=== PATIENT | female | born 1960 | race Two or more races ===

== ENCOUNTER 2024-07-19 17:03 | Emergency (ER) | payer MEDICAID, SELFPAY ==
[2024-07-19 17:06] VITALS: BP 120/62; PULSE 77; RESP 19; TEMP 36.6; O2SAT 96
[2024-07-19 17:18] VITALS: PULSE 79; RESP 18; O2SAT 100; BMI 26.5
[2024-07-19 17:25] VITALS: BP 123/57; PULSE 76; RESP 13; TEMP 36.5; O2SAT 97
--- NOTE | 2024-07-19 17:30 | PC.NURSE ---
Patient denies n/vomiting, patient states she did not eat all day, patient provided with 120ml of orange juice and a turkey sandwich.
--- NOTE | 2024-07-19 17:51 | EDNOTE_ITS ---
Altered Mental Status RME/HPI General Chief Complaint: Altered Mental Status Stated Complaint: ALTERED MENTAL STATUS Time Seen by Provider: 07/19/24 17:44 Arrival date/time: 07/19/24 17:03 Limitations: no limitations RME / HPI RME / HPI narrative: 63-year-old patient was at the [facility] when she had a sudden drop in her glucose became altered and brought in by EMS. States she had not eaten all day and decided to take her glipizide 5 mg. Prescribed 5 mg of glipizide twice daily. States that she has had hypoglycemia in the past with insulin and with GLP once a week injection. States they stopped her metformin a long time ago due to CKD. Has been sent to nephrology but refuses to go. States she feels fine. Reports he is always afraid to use diabetic medicine because she has a sugar drop and feels horrible as opposed to when her sugar is high or normal she feels fine. No chest pain or shortness of breath. Related Data Allergies Allergy/AdvReac Type Severity Reaction Status Date / Time No Known Allergies Allergy Verified 07/19/24 17:24 Review of Systems Review of Systems Systems Reviewed: All systems reviewed, normal except as documented Cardiovascular Cardiovascular: Denies chest pain at rest Respiratory Respiratory: Denies chest congestion Gastrointestinal Gastrointestinal: Denies abdominal pain Endocrine Endocrine: Reports as per HPI ED Exam General Limitations: Present no limitations General appearance: Present alert and in no apparent distress Head Head exam: Present atraumatic Eye Eye exam: Present normal appearance, PERRL and EOMI ENT ENT exam: Present normal exam, normal oropharynx and mucous membranes moist Neck Neck exam: Present normal inspection, full ROM and trachea midline Chest Chest inspection: Present normal inspection and symmetric chest wall rise Respiratory Respiratory exam: Present normal lung sounds bilaterally Cardiovascular Cardiovascular exam: Present regular rate, normal rhythm and normal heart sounds Abdominal Exam Abdominal exam: Present soft and normal bowel sounds Extremities Exam Extremities exam: Present normal inspection and full ROM Back Exam Back exam: Present normal inspection and full ROM Psychiatric Psychiatric exam: Present normal affect and normal mood Skin Skin exam: Present warm, dry, intact and normal color Course Quality Measures none Orders Category Date Time Status EKG (ED ONLY) *Do not use* NOW Care 07/19/24 17:52 Completed EKG (ED Only) Stat Exams 07/19/24 17:52 Draft XR chest 1V Stat Exams 07/19/24 17:52 Completed BNP [B-Type Natriuretic Peptide] Stat Lab 07/19/24 17:36 Completed CBC Stat Lab 07/19/24 17:36 Completed CMP [Comprehensive Metabolic Panel] Stat Lab 07/19/24 17:36 Completed Ketone [Beta Hydroxybutyrate] Stat Lab 07/19/24 17:36 Completed Lactic Acid [Lactate (Lactic Acid)] Stat Lab 07/19/24 17:36 Completed Lipase Stat Lab 07/19/24 17:36 Completed Troponin I Stat Lab 07/19/24 17:36 Completed UA [Urinalysis] Stat Lab 07/19/24 19:45 Completed VBG [Venous Blood Gas] Stat Lab 07/19/24 17:36 Completed Vital Signs Vital signs: Vital Signs Temperature 97.9 F 07/19/24 17:06 Pulse Rate 77 07/19/24 17:06 Respiratory Rate 19 07/19/24 17:06 Blood Pressure 120/62 07/19/24 17:06 Pulse Oximetry (%) 96 07/19/24 17:06 Oxygen Delivery Method Room Air 07/19/24 17:06 Procedures -ED EKG Interpretation #1: Date of EK07/19/24 Time of EK:59 Rate: 76 Interpretation: Interpreted by me EKG Impression: Normal sinus rhythm, No acute ST-T changes and No ectopy Altered Mental Status MDM Narrative MDM Narrative:: 63-year-old female with poor compliance medication and known CKD responded well to oral glucose. Advised to not take glipizide for the next few days until she can follow-up with PCP. Return to ER if symptoms worsen Patient data External records reviewed:: [facility] previous records Clinical information provided by:: patient and EMS Social determinants that could affect healthcare access:: other (specify) (Elderly patient brought in by EMS for acute condition) Patient has the following chronic illnesses:: Diabetes with history of hypoglycemia Chronic kidney disease How is presenting disease/condition affected by chronic disease/condition?: exacerbated by Evaluation data The following diagnostics were reviewed and interpreted by me:: lab results and radiology exam(s) Lab and/or radiology exams considered but not ordered:: CT abdomen pelvis considered however not warranted and this episode of hypoglycemia which was resolved Interpretation Summary: CBC within normal limits, CMP shows a creatinine of 2.7 patient states she has CKD and this is not new for her. No lactic acidosis normal EKG normal troponin normal BNP no pneumonia found on chest x-ray Medications / Prescriptions Medications or Prescriptions considered but not ordered:: Glucose was considered however patient responded to food Medication administrations:: None Consultations Consultation(s) initiated? (list below): No Diagnosis Most likely diagnosis given after review of the tests above:: Hypoglycemia due to glipizide without eating Diabetes with CKD Admission Indicated Admission indicated?: not indicated Admission Request Was there a request for admission?: No Disposition Plan Disposition Plan: Discharge Discharge Attestation Discharge Attestation: The patient and all family members were given an opportunity to ask questions and understood the discharge instructions. Discharge instructions specifically effects, indications for sooner follow up or return to the emergency department, and the expected course of current diagnosis. Patient condition: Stable Discharge Plan Plan Patient Disposition: HOME (Self Care) Discharge Disposition comment: Follow-up with PCP in 2 to 3 days Prescriptions/Referrals Referrals: No Primary/Family,Physician [Primary Care Provider] - In 1 week Problem List Clinical Impression: Diabetes mellitus with hypoglycemia, CKD (chronic kidney disease), Poor compliance with medication Patient/Caregiver Discharge Instructions Education Materials: CKD Dc, Diabetes Exercise Plan Print Language: Cymro Stand Alone Forms: Mis Award Info., Patient Portal Info Letter PA/SPICE MILLER Supervising Physician PA/SPICE MILLER Supervising Physician: Dr. Jernigan
--- NOTE | 2024-07-19 17:52 | EKG_ITS ---
[facility] Test Date: 2024-07-19 Pat Name: ESTHER CARLSON Department: Room: - Gender: Female Acute Specialist: : 1960 Requested By: Rosemary Singletary Order Number: [id number] Reading MD: Rosemary Singletary Measurements Intervals [place] Rate: 76 P: -1 RI: 176 QRS: -14 QRSD: 137 T: -2 QT: 432 QTc: 486 Interpretive Statements SINUS RHYTHM RIGHT BUNDLE BRANCH BLOCK [120+ ms QRS DURATION, UPRIGHT V1, 40+ ms S IN I/aVL/V4/V5/V6] No previous ECG available for comparison /[id number]/[email or web address]/[id number].pdf
--- NOTE | 2024-07-19 17:52 | XR_ITS ---
Examination: AP chest single view Technique one AP portable semiupright chest single view Date and time: July 19, 2024 1828 hours INDICATIONS: Chest pain shows about beginning today FINDINGS: Mild heart failure Mild enlargement cardiac contour. Prominent vascular congestion and increased central vascular engorgement Early perihilar edema Prominent osteopenia IMPRESSION: Early heart failure
[2024-07-19 18:07] LABS: Base Excess, Venous -14 (-3-3); Lactate (Lactic Acid) 1.2 mMol/L (0.4-2.0); O2 Saturation, Venous 94 % (96-97); PCO2, Venous 35 mmHg (36-56); PO2, Venous 100 mmHg (15-58); pH, Venous 7.19 (7.33-7.66)
--- NOTE | 2024-07-19 18:10 | PC.NURSE ---
Patient FSBS 93mg/dl, Dr. Jacobo made aware and wants patient to be given more food, patient provided with chips, 120ml of orange juice and jello.
[2024-07-19 18:19] LABS: Basophils % (Auto) 0 % (0-2.5); Eosinophils % (Auto) 1 % (0-10); Hematocrit 24.3 % (36.0-46.0); Immature Granulocytes % (Auto) 0 % (0-0); Immature Granulocytes Auto 0.02 Thou/mm3 (0.00-0.00); Lymphocytes # (Auto) 0.6 Thou/mm3 (1.0-4.8); Lymphocytes % (Auto) 10 % (10-50); Mean Corpuscular HGB Conc 33.3 g/dl (31.0-37.0); Mean Corpuscular Hemoglobin 29.6 pg (25.0-35.0); Mean Corpuscular Volume 89 fL (80-100); Monocytes # (Auto) 0.6 Thou/mm3 (0.0-0.8); Monocytes % (Auto) 10 % (0-12); Neutrophils # (Auto) 5.2 Thou/mm3 (1.8-7.7); Neutrophils % (Auto) 80 % (37-80); Nucleated Red Blood Cell % 0 /100 WBC (0); Platelet Count 109 Thou/mm3 (140-440); RDW Standard Deviation 46.9 fL (36.4-46.3); Red Blood Count 2.74 Miln/mm3 (4.00-5.20); White Blood Count 6.6 Thou/mm3 (3.6-11.0)
[2024-07-19 18:35] LABS: Hemoglobin 8.1 g/dL (12.0-16.0)
[2024-07-19 18:58] LABS: B-Type Natriuretic Peptide 202 pg/mL (0-100)
[2024-07-19 19:08] LABS: Alanine Aminotransferase 13 U/L (10-49); Albumin, Serum 3.4 gm/dL (3.4-4.8); Albumin/Globulin Ratio 1.7 (1.2-2.2); Alkaline Phosphatase 127 U/L (46-116); BUN/Creatinine Ratio 21 Ratio (12-20); Bilirubin,Total < 0.2 mg/dL (0.3-1.2); Blood Urea Nitrogen 56 mg/dL (9-23); Calcium 7.7 mg/dL (8.3-10.6); Calcium (Corrected) 8.2 mg/dL (8.5-10.1); Chloride 112 mMol/L (98-107); Creatinine (Component) 2.7 mg/dL (0.6-1.3); Estimated Creatinine Clearance 18.5 mL/min (>60); Glucose 204 mg/dL (74-106); Lipase 16 U/L (12-53); Osmolality,Calculated 302 (275-295); Sodium 141 mMol/L (136-145); Total Protein 5.4 gm/dL (5.7-8.2); Troponin I < 0.020 ng/mL (0.0-0.045); eGFR 19 See Note
[2024-07-19 19:17] VITALS: BP 128/54; PULSE 84; RESP 20; TEMP 36.5; O2SAT 100
[2024-07-19 19:18] LABS: Anion Gap 14 (7-16); Carbon Dioxide 15.1 mMol/L (20.0-31.0)
[2024-07-19 20:09] LABS: Collection Type, Urine Clean Catch
[2024-07-19 20:28] LABS: Bilirubin,Urine Negative (Negative); Blood,Urine 3+ (Negative); Clarity,Urine Turbid (Clear/Hazy); Color,Urine Colorless (Lt Yel-Yel); Glucose, Urine Negative (Negative); Granular Casts,Urine < 1 /hpf (0-1); Ketones,Urine Negative (Negative); Leukocyte Esterase,Urine Positive (Negative); Nitrite,Urine Negative (Negative); PH,Urine 5.5 (5.0-7.0); Protein,Urine 1+ (Neg - Trace); RBC,Urine 597 /hpf (0-3); Specific Gravity,Urine 1.011 (1.001-1.035); Squamous Epithelial Cell,Urine 1 /hpf (0-5); Uric Acid Crystals,Urine 1+; Urobilinogen,Urine Negative mg/dL (0.0-1.0); WBC,Urine 10 /hpf (0-5)
[2024-07-19 20:46] VITALS: BP 150/58; PULSE 87; RESP 18; TEMP 36.6; O2SAT 100
== END 2024-07-19 20:55 | disposition home or self-care (01) ==
PROVIDERS: Physician Assistant; Emergency Provider Family Medicine
DX: E11.649 Type 2 diabetes mellitus with hypoglycemia without coma (principal); E11.22 Type 2 diabetes mellitus with diabetic chronic kidney disease; N18.9 Chronic kidney disease, unspecified; Z91.148 Patient's other noncompliance with medication regimen for other reason; I45.10 Unspecified right bundle-branch block; R07.9 Chest pain, unspecified; Z79.84 Long term (current) use of oral hypoglycemic drugs
CPT/HCPCS: 36415; 71045; 80053; 81001; 82010; 82803; 83605; 83690; 83880; 84484; 85025; 93005; 99283